=== PATIENT | female | born 1995 | race Caucasian/White ===

== ENCOUNTER 2019-07-05 18:27 | Emergency (ER) | payer OTHER ==
[~2019-07-05] VITALS: Ht 167.6 cm; Wt 75.0 kg
[2019-07-05 18:29] VITALS: Ht 167.6 cm; Wt 75.0 kg
[2019-07-05] MEDS ORDERED: TYLENOL #4 W/CO1 TAB PO (19:56)
[2019-07-05 20:18] VITALS: BP 138/87
== END 2019-07-05 20:18 | disposition home or self-care (01) ==
LOC: D.ER 18:27 → EDBD 18:27 → D.ER 20:18
DX: S60.221A Contusion of right hand, initial encounter (principal); W23.1XXA Caught, crushed, jammed, or pinched between stationary objects, initial encounter; Y93.89 Activity, other specified; Y92.89 Other specified places as the place of occurrence of the external cause